=== PATIENT | male | born 1995 | race Hispanic/Latino ===

== ENCOUNTER 2019-06-26 08:35 | Emergency (ER) | payer BC, OTHER ==
[2019-06-26] MEDS ORDERED: ONDANSETRON 4 MG TABLET ONE (08:49)
[2019-06-26] MEDS ORDERED: FAMOTIDINE 20MG TAB 20 MG TAB ONE (08:49)
[2019-06-26] MEDS ORDERED: HYOSCYAMINE SULFATE 0.125 MG TAB.SUBL SL ONE (08:49)
== END 2019-06-26 09:37 | disposition home or self-care (01) ==
LOC: EDH 08:35
DX: R11.2 Nausea with vomiting, unspecified (principal); R10.13 Epigastric pain; Z72.0 Tobacco use
CPT/HCPCS: 99283; Q0162